=== PATIENT | female | born 1970 | race Caucasian/White ===

== ENCOUNTER → 2021-08-09 | Outpatient (CLI) | payer SELFPAY ==
[~2021-08-09] VITALS: Ht 167.7 cm; Wt 95.9 kg
[~2021-08-09] MED LIST: ACETAMINOPHEN 500 MG TAB (TYLENOL) PO PRN; AGM875T PO; AMLO10TA82 PO; ATEN50TA PO; BAMLANIVIMAB 700 MG/ETESEVIMAB 1,400 MG IN NS IV ONE; EPINEPHrine INJECTION 1 MG/ML AMP IM PRN; METH4TAB PO; ONDANSETRON 4 MG/2 ML (SDV) Z0FRAN IV PRN; VALA100033 PO; [UNRECOGNIZED DRUG - CODE] OT; diphenhydrAMINE 50 MG/ML INJ (BENADRYL) IV PRN
[2021-08-09 11:15] VITALS: BP 128/74
[2021-08-09 12:46] VITALS: BP 113/74
== END ==
LOC: INFUSION 11:13
PROVIDERS: ATTEND Pediatrics
DX: U07.1 COVID-19 (principal)

== ENCOUNTER 2023-03-03 20:44 | Emergency (ER) | payer OTHER ==
[~2023-03-03] VITALS: Ht 167.7 cm; Wt 97.5 kg
[~2023-03-03 20:44] MED LIST changes: -ACETAMINOPHEN 500 MG TAB (TYLENOL) PO PRN; -BAMLANIVIMAB 700 MG/ETESEVIMAB 1,400 MG IN NS IV ONE; -EPINEPHrine INJECTION 1 MG/ML AMP IM PRN; -ONDANSETRON 4 MG/2 ML (SDV) Z0FRAN IV PRN; -diphenhydrAMINE 50 MG/ML INJ (BENADRYL) IV PRN
--- NOTE | 2023-03-03 20:57 | ED Head Injury ---
General Chief Complaint: Trauma-Non Activation Stated Complaint: FALL/HIT BACK OF HEAD Nursing Triage Note: PT AMB TO ED BY POV WITH C/O HEAD INJURY. PT REPORTS SHE SLIPPED ON A PIECE OF CLOTHING, FELL, AND HIT THE BACK OF HER HEAD ON THE WALL OF THE BATH TUB. PT UNSURE IF SHE LOST CONCIOUSNESS. C/O HICKEY AND SLIGHT DIZZINESS AT THIS TIME, DENIES NAUSEA. Source: patient Exam Limitations: no limitations (TAYA HEAD) History of Present Illness Date Seen by Provider: Mar 03, 2023 Time Seen by Provider: 20:55 Initial Comments Patient is a 52-year-old female presents ED with a head injury. About 40 minutes ago she slipped on some clothes out side of the bathtub and landing in the shower hitting the back of the wall. This resulted in a contusion to her occipital head. Possible loss conscious. Not on blood thinners. She reports headache and dizziness. Denies any visual changes vomiting, unilateral weakness. She reports pain to the right elbow as she did hit her elbow. She is able to ambulate with a steady gait. Denies taking thing for pain. She denies facial pain, neck pain, chest pain, shortness of breath, cough, lower extremity pain, abdominal pain, vomiting, diarrhea, fever, chills. Patient GCS 15. Alert and orient x4 (TAYA HEAD) Allergies and Home Medications Allergies Coded Allergies: tramadol HCl (Verified Adverse Reaction, Severe, ITCHING, 12/12/12) Patient Home Medication List Home Medication List Reviewed: Yes (TAYA HEAD) Amlodipine Besylate (Norvasc Tablet) 10 Mg Tablet, 10 MG PO DAILY, (Reported) Entered as Reported by: LON CORONA on 12/12/12 142 Amoxicillin/Clavulanate K (Augmentin 875-125 Tablet) 1 Tab Tablet, 1 TAB PO BID, (Reported) Entered as Reported by: LON CORONA on 12/12/12 1421 Antipyrine/Benzocain/Gly/Zinc (Neotic Ear Drops) 10 Ml Drops, 10 ML OT PRN, (Reported) Entered as Reported by: LON CORONA on 12/12/12 1420 Atenolol (Tenormin 50 Mg) 50 Mg Tablet, 50 MG PO DAILY, (Reported) Entered as Reported by: LON CORONA on 12/12/12 1422 Methylprednisolone (Medrol Dose Pack) 4 Mg/Dose-Pack Tab.ds.pk, 0 PO UD, (Reported) Entered as Reported by: OLN CORONA on 12/12/12 1421 Methylprednisolone (Medrol Dose Pack) 4 Mg/Dose-Pack Tab.ds.pk, 0 PO UD Prescribed by: CHELSY MCGEE on 12/12/12 170 Valacyclovir Hcl (Valtrex) 1,000 Mg Tablet, 1,000 MG PO TID Prescribed by: CHELSY MCGEE on 12/12/121703 Review of Systems Review of Systems Constitutional: No chills, No diaphoresis; dizziness; No fever, No malaise, No weakness Eyes: Denies Blurred Vision, Denies Drainage, Denies Decreased Acuity Ears, Nose, Mouth, Throat: denies ear pain, denies ear discharge Respiratory: No cough, No dyspnea on exertion Cardiovascular: No chest pain Gastrointestinal: No abdominal pain, No diarrhea, No nausea, No vomiting Genitourinary: No decreased output, No discharge Musculoskeletal: No back pain, No joint pain, No joint swelling, No muscle pain Skin: change in color; No change in hair/nails (TAYA HEAD) All Other Systems Reviewed Negative Unless Noted: Yes (TAYA HEAD) Past Rvoxvta-Odafkf-Astdyx Hx Seasonal Allergies Seasonal Allergies: Yes (TAYA HEAD) Physical Exam Vital Signs Vital Signs - First Documented 03/03/23 20:49 Temp 36.4 Pulse 78 Resp 16 B/P (MAP) 128/72 (90) Pulse Ox 96 O2 Delivery Room Air (SCOTT CARY MD) Vital Signs Capillary Refill : Less Than 3 Seconds (TAYA HEAD) Height, Weight, BMI Height: '" Weight: lbs. oz. kg; 34.00 BMI Method:Stated General Appearance: WD/WN, no apparent distress HEENT: PERRL/EOMI, normal ENT inspection, TMs normal, pharynx normal Neck: non-tender, full range of motion Cardiovascular: regular rate, rhythm, no edema, no gallop, no JVD Respiratory: chest non-tender, lungs clear, normal breath sounds, no respiratory distress, no accessory muscle use Gastrointestinal: normal bowel sounds, non tender, soft, no organomegaly Back: normal inspection, no CVA tenderness, no vertebral tenderness Extremities: no pedal edema, no calf tenderness, other (Tenderness to right posterior olecranon. Mild swelling with normal active range of motion. [employer] strength out of 5) Coordination/Gait: normal finger to nose, normal gait Motor/Sensory: no motor deficit, no sensory deficit Skin: other (Contusion to right posterior parietal scalp.) (TAYA HEAD) Yaakov Coma Score Best Eye Response: (4) Open Spontaneously Best Verbal Response: (5) Oriented Best Motor Response: (6) Obeys Commands [place] Total: 15 (TAYA HEAD) Progress/Results/Core Measures Results/Orders Medications Given in ED Current Medications Medications Dose Ordered Sig/Oscar Route Start Time Stop Time Status Last Admin Dose Admin Acetaminophen 1,000 mg ONCE ONCE PO 03/03/23 21:00 03/03/23 21:01 DC 03/03/23 21:19 1,000 MG (SCOTT CARY MD) Vital Signs/I&O 03/03/23 03/03/23 20:49 21:51 Temp 36.4 Pulse 78 75 Resp 16 16 B/P (MAP) 128/72 (90) 131/78 Pulse Ox 96 95 O2 Delivery Room Air Room Air (SCOTT CARY MD) Blood Pressure Mean: 90 Departure Communication (PCP) Reviewed previous ER visits, H&P, lab testing. Patient presents to ED with head injury and right elbow injury. Potential loss of conscious. Not on blood thinners. Differential diagnosis of intracranial bleed, cranial fracture, concussion. On arrival alert and orient x4. GCS 15. No focal neural deficits. She has tenderness to the right elbow with normal range of motion. Right parietal occipital hematoma. No crepitus or step-off. No cervical midline tenderness. Due to mechanism of injury, fall potential loss of consciousness CT scan of the head and cervical neck was ordered which was negative for acute abnormality. X-ray of the right elbow was negative for fracture. She did receive Tylenol for her headache. No strong evidence of concussive leg syndromes. She has no sensitivity to light, nausea, vomiting. She does report some mild headache and dizziness. Provided a work note. If continued headache dizziness sensitivity light nausea recommend resting at home. Follow-up your PCP in 2 to 3 days for reevaluation. If any worsening symptoms such as loss of consciousness, increased worsening head pain, vomiting to return back to ED. Patient agrees with plan of action. (TAYA HEAD) Impression Primary Impression: Head injury Disposition: HOME, SELF-CARE Condition: Stable Departure-Patient Inst. Decision time for Depature: 21:38 (TYAA HEAD) Referrals: HELEN SINGH DO (PCP/Family) Primary Care Physician Patient Instructions: Minor Head Injury Add. Discharge Instructions: Recommend rest, ice, anti-inflammatories such as Motrin or Tylenol for headache. If any worsening symptoms return back to ED All discharge instructions reviewed with patient and/or family. Voiced understanding. Work/School Note: Work Release Form Date Seen in the Emergency Department: Mar 03, 2023 Return to Work: Mar 06, 2023 ATTENDING PHYSICIAN NOTE: I was physically present as attending physician in the emergency department during the care of this patient, but I was not directly involved in the decision making or delivery of care for this patient. (SCOTT CARY MD) TAYA HEAD Mar 03, 2023 20:57 SCOTT CARY MD Mar 04, 2023 08:17
[2023-03-03] MEDS ORDERED: ACETAMINOPHEN 500 MG TAB (TYLENOL) PO ONE (21:00)
--- NOTE | 2023-03-03 21:24 | Diagnostic Imaging Report ---
INDICATION: Right elbow pain post fall. EXAMINATION: AP, oblique and lateral views of the right elbow were obtained. FINDINGS: No fracture or acute bony abnormality is seen. Joint spaces are unremarkable. IMPRESSION: Negative right elbow. Dictated by: Dictated on workstation # [id number]
--- NOTE | 2023-03-03 21:36 | Diagnostic Imaging Report ---
INDICATION: Fall with injury to head and neck pain. TECHNIQUE: Multiple contiguous axial images were obtained through the brain and cervical spine without the use of intravenous contrast. Sagittal and coronal reformations through the cervical spine were then performed. Auto Exposure Controls were utilized during the CT exam to meet ALARA standards for radiation dose reduction. COMPARISON: There is no previous study for comparison. FINDINGS: CT HEAD: There is no extra-axial fluid collection. No intracranial hemorrhage. No intracranial mass or mass effect. No midline shift. The ventricles are normal in size and position. There is no focal parenchymal abnormality in the brain. Calvarial windows are unremarkable. There is a right posterior scalp hematoma. Visualized portions of the orbits and sinuses are unremarkable. CT CERVICAL SPINE FINDINGS: There is no evidence of cervical spine fracture. There is no subluxation or malalignment. There is disc space narrowing at C3-C4, C5-C6 and C6-C7. There is diffuse facet degenerative change. IMPRESSION: 1. CT head shows no acute intracranial hemorrhage or calvarial fracture. There is a right posterior scalp hematoma. 2. CT cervical spine shows degenerative changes but no acute fracture or subluxation. Dictated by: Dictated on workstation # [id number]
[2023-03-03 21:51] VITALS: BP 131/78
== END 2023-03-03 21:51 | disposition home or self-care (01) ==
LOC: EDUNIT# 20:44 → ER 20:46
DX: S00.90XA Unspecified superficial injury of unspecified part of head, initial encounter (principal); S00.03XA Contusion of scalp, initial encounter; W01.198A Fall on same level from slipping, tripping and stumbling with subsequent striking against other object, initial encounter; Y92.89 Other specified places as the place of occurrence of the external cause
CPT/HCPCS: 70450; 72125; 73080